=== PATIENT | female | born 1980 | race Caucasian/White ===

== ENCOUNTER 2023-10-24 09:42 | Emergency (ER) | payer SELFPAY ==
[~2023-10-24] VITALS: Ht 165.1 cm; Wt 59.0 kg
[2023-10-24 10:17] VITALS: BP 128/82; PULSE 82; RESP 18; TEMP 98; O2SAT 98
[2023-10-24] MEDS: KETOROLAC TROMETH 60MG/2ML VIAL IM ONE (10:30)
[2023-10-24] MEDS ORDERED: METH-1181 PO (11:20)
[2023-10-24] MEDS ORDERED: ACET-1080 PO (11:20)
== END 2023-10-24 11:23 | disposition home or self-care (01) ==
LOC: ER 09:42
DX: S29.012A Strain of muscle and tendon of back wall of thorax, initial encounter (principal); R07.89 Other chest pain; I25.2 Old myocardial infarction; X50.1XXA Overexertion from prolonged static or awkward postures, initial encounter; Y93.89 Activity, other specified; Y92.89 Other specified places as the place of occurrence of the external cause; Y99.8 Other external cause status
CPT/HCPCS: 71046; 96372; 99283; J1885